=== PATIENT | female | born 1970 | race American Indian/Alaskan Native ===

== ENCOUNTER 2020-08-29 21:04 | Emergency (ER) | payer OTHER ==
[2020-08-29 21:25] VITALS: BP 212/106
[2020-08-29] MEDS ORDERED: ASPIRIN 325 MG TAB PO ONE (21:27)
[2020-08-29 22:01] LABS: Basophils % (Auto) 0.5 % (0.0-1.8); Eosinophils # (Auto) 0.2 K/mm3 (0.0-0.4); Eosinophils % (Auto) 2.2 % (0.0-4.3); Hematocrit 31.8 % (30.3-42.9); Hemoglobin 10.2 gm/dl (10.1-14.3); Lymphocytes # (Auto) 3.2 K/mm3 (1.2-5.4); Lymphocytes % (Auto) 31.9 % (13.4-35.0); Mean Corpuscular HGB Conc 32 % (30-34); Mean Corpuscular Volume 87 fl (79-97); Monocytes # (Auto) 0.7 K/mm3 (0.0-0.8); Monocytes % (Auto) 7.3 % (0.0-7.3); Platelet Count 291 K/mm3 (140-440); Red Blood Count 3.67 M/mm3 (3.65-5.03)
[2020-08-29 22:03] LABS: Red Cell Distribution Width 20.8 % (13.2-15.2)
[2020-08-29 22:21] LABS: Blood Urea Nitrogen 13 mg/dL (7-17); Calcium 8.9 mg/dL (8.4-10.2); Hemolysis Index 41
[2020-08-29 22:32] LABS: BUN/Creatinine Ratio 19
--- NOTE | 2020-08-29 22:50 | XRay Report ---
CHEST 1 VIEW 08/29/2020 9:39 PM INDICATION / CLINICAL INFORMATION: Chest pain. COMPARISON: None available. FINDINGS: SUPPORT DEVICES: None. HEART / MEDIASTINUM: No significant abnormality. LUNGS / PLEURA: No significant pulmonary or pleural abnormality. No pneumothorax. ADDITIONAL FINDINGS: No significant additional findings. IMPRESSION: 1. No acute findings. Signer Name: Brian Sanchez MD Signed: 08/29/2020 10:45 PM Workstation Name: [id number]
--- NOTE | 2020-08-30 00:44 | Cat Scan Report ---
CTA CHEST WITH IV CONTRAST INDICATION: Chest pain, shortness of breath. TECHNIQUE: Axial CT images were obtained through the chest after injection of 100 mL Omnipaque 350 IV contrast. 3 plane MIP reconstructions were produced. All CT scans at this location are performed using CT dose reduction for ALARA by means of automated exposure control. COMPARISON: None available. FINDINGS: Pulmonary Arteries: No pulmonary emboli. Lungs: No significant abnormality. Trachea and Bronchi: No significant abnormality. Heart and Pericardium: No significant abnormality. Vasculature: No significant abnormality. Lymphatics: No lymphadenopathy. Additional Findings: None. Upper Abdomen: There is a small hiatal hernia. Skeletal Structures: No aggressive appearing bone lesion. Mild generalized spondylosis in the thoraci c spine. IMPRESSION: 1. No CT evidence for pulmonary embolism. 2. No acute findings. 3. Small hiatal hernia. Signer Name: Brian Sanchez MD Signed: 08/30/2020 12:40 AM Workstation Name: [id number]
--- NOTE | 2020-08-30 01:06 | Emergency Department Report ---
ED General Adult HPI - General Chief complaint: Chest Pain Stated complaint: CHEST PAIN BLOOD PRESSURE Time Seen by Provider: 08/29/20 22:28 Source: patient Mode of arrival: Ambulatory Limitations: No Limitations - History of Present Illness Initial comments: Patient presents to the emergency department the chief complaint of chest tightness that radiates down her left arm with difficulty breathing that started at 3 PM today. Patient that she was at work and EMS was called and upon their evaluation her blood pressure is elevated with a systolic pressure of greater than 200. Upon arrival to the ED her blood pressure was 212/106. Patient states she took a dose of her nifedipine 10 minutes prior to coming to the emergency department. Patient states that pain has been continuous and located on left side of her chest. -: Sudden Location: chest Radiation: extremity Severity scale (0 -10): 2 Quality: other (Tightness) Consistency: constant Improves with: none Worsens with: none Associated Symptoms: denies other symptoms Treatments Prior to Arrival: none - Related Data Allergies Allergy/AdvReac Type Severity Reaction Status Date / Time No Known Allergies Allergy Unverified 08/29/20 21:27 ED Review of Systems ROS: Stated complaint: CHEST PAIN BLOOD PRESSURE Other details as noted in HPI Comment: All other systems reviewed and negative Constitutional: denies: chills, fever Eyes: denies: eye pain, eye discharge, vision change ENT: denies: ear pain, throat pain Respiratory: shortness of breath, SOB with exertion. denies: cough, wheezing Cardiovascular: chest pain. denies: palpitations Endocrine: no symptoms reported Gastrointestinal: denies: abdominal pain, nausea, diarrhea Genitourinary: denies: urgency, dysuria, discharge Musculoskeletal: denies: back pain, joint swelling, arthralgia Skin: denies: rash, lesions Neurological: denies: headache, weakness, paresthesias Psychiatric: denies: anxiety, depression Hematological/Lymphatic: denies: easy bleeding, easy bruising ED Past Medical Hx - Past Medical History Previous Medical History?: Yes Hx Hypertension: Yes - Surgical History Past Surgical History?: No - Social History Smoking Status: Never Smoker Substance Use Type: None ED Physical Exam - General Limitations: No Limitations General appearance: alert, in no apparent distress - Head Head exam: Present: atraumatic, normocephalic - Eye Eye exam: Present: normal appearance, PERRL, EOMI - ENT ENT exam: Present: mucous membranes moist - Neck Neck exam: Present: normal inspection - Respiratory Respiratory exam: Present: normal lung sounds bilaterally. Absent: respiratory distress - Cardiovascular Cardiovascular Exam: Present: regular rate, normal rhythm. Absent: systolic murmur, diastolic murmur, rubs, gallop - GI/Abdominal GI/Abdominal exam: Present: soft, normal bowel sounds. Absent: distended, tenderness - Extremities Exam Extremities exam: Present: normal inspection - Back Exam Back exam: Present: normal inspection - Neurological Exam Neurological exam: Present: alert, oriented X3, CN II-XII intact. Absent: motor sensory deficit - Psychiatric Psychiatric exam: Present: normal affect, normal mood - Skin Skin exam: Present: warm, dry, intact, normal color. Absent: rash ED Course Vital Signs 08/29/20 21:18 Temperature 98.6 F Pulse Rate 74 Respiratory 18 Rate Blood Pressure 212/106 O2 Sat by Pulse 98 Oximetry ED Medical Decision Making - Lab Data Result diagrams: 08/29/20 21:39 08/29/20 21:39 Lab Results 08/29/20 08/29/20 08/29/20 Range/Units 21:39 21:39 21:39 WBC 10.0 (4.5-11.0) K/mm3 RBC 3.67 (3.65-5.03) M/mm3 Hgb 10.2 (10.1-14.3) gm/dl Hct 31.8 (30.3-42.9) % MCV 87 (79-97) fl MCH 28 (28-32) pg MCHC 32 (30-34) % RDW 20.8 H (13.2-15.2) % Plt Count 291 (140-440) K/mm3 Lymph % (Auto) 31.9 (13.4-35.0) % [place] % (Auto) 7.3 (0.0-7.3) % Eos % (Auto) 2.2 (0.0-4.3) % Baso % (Auto) 0.5 (0.0-1.8) % Lymph # (Auto) 3.2 (1.2-5.4) K/mm3 [place] # (Auto) 0.7 (0.0-0.8) K/mm3 Eos # (Auto) 0.2 (0.0-0.4) K/mm3 Baso # (Auto) 0.0 (0.0-0.1) K/mm3 Seg Neutrophils % 58.1 (40.0-70.0) % Seg Neutrophils # 5.8 (1.8-7.7) K/mm3 D-Dimer (0-234) ng/mlDDU Sodium 141 (137-145) mmol/L Potassium 4.2 (3.6-5.0) mmol/L Chloride 104.5 (98-107) mmol/L Carbon Dioxide 23 (22-30) mmol/L Anion Gap 18 mmol/L BUN 13 (7-17) mg/dL Creatinine 0.7 (0.6-1.2) mg/dL Estimated GFR > 60 ml/min BUN/Creatinine Ratio 19 % Glucose 95 (65-100) mg/dL Calcium 8.9 (8.4-10.2) mg/dL Troponin T < 0.010 (0.00-0.029) ng/mL HCG, Qual Negative (Negative) 08/29/20 Range/Units 23:03 WBC (4.5-11.0) K/mm3 RBC (3.65-5.03) M/mm3 Hgb (10.1-14.3) gm/dl Hct (30.3-42.9) % MCV (79-97) fl MCH (28-32) pg MCHC (30-34) % RDW (13.2-15.2) % Plt Count (140-440) K/mm3 Lymph % (Auto) (13.4-35.0) % [place] % (Auto) (0.0-7.3) % Eos % (Auto) (0.0-4.3) % Baso % (Auto) (0.0-1.8) % Lymph # (Auto) (1.2-5.4) K/mm3 [place] # (Auto) (0.0-0.8) K/mm3 Eos # (Auto) (0.0-0.4) K/mm3 Baso # (Auto) (0.0-0.1) K/mm3 Seg Neutrophils % (40.0-70.0) % Seg Neutrophils # (1.8-7.7) K/mm3 D-Dimer 360.31 H (0-234) ng/mlDDU Sodium (137-145) mmol/L Potassium (3.6-5.0) mmol/L Chloride (98-107) mmol/L Carbon Dioxide (22-30) mmol/L Anion Gap mmol/L BUN (7-17) mg/dL Creatinine (0.6-1.2) mg/dL Estimated GFR ml/min BUN/Creatinine Ratio % Glucose (65-100) mg/dL Calcium (8.4-10.2) mg/dL Troponin T (0.00-0.029) ng/mL HCG, Qual (Negative) - EKG Data -: EKG Interpreted by Me EKG shows normal: sinus rhythm Rate: normal - Radiology Data Radiology results: report reviewed - Medical Decision Making Discussed findings of laboratory and imaging. Discussed findings of a small hiatal hernia. Critical care attestation.: If time is entered above; I have spent that time in minutes in the direct care of this critically ill patient, excluding procedure time. ED Disposition Clinical Impression: Nonspecific chest pain, Hypertension, Hiatal hernia Disposition: TO HOME OR SELFCARE Is pt being admited?: No Does the pt Need Aspirin: No Condition: Stable Instructions: Chest Pain (ED), Hypertension (ED), Hiatal Hernia (ED) Additional Instructions: return if worse Referrals: PRIMARY CARE, [Primary Care Provider] - 3-5 Days JIMMY DUNBAR MD [Staff Physician] - 3-5 Days Forms: Work/School Release Form(ED) Time of Disposition: 01:29 Heart Score - HEART Score History: Slightly suspicious EKG: Normal Age: 45-65 Risk factors: 1-2 risk factors Troponin: < normal limit HEART Score: 2
== END 2020-08-30 01:45 | disposition home or self-care (01) ==
LOC: ED 21:04
DX: K44.9 Diaphragmatic hernia without obstruction or gangrene (principal); I10 Essential (primary) hypertension; R07.89 Other chest pain
CPT/HCPCS: 36415; 71045; 71275; 80048; 84484; 84703; 85025; 85379; 93005; 99285; Q9967

== ENCOUNTER 2022-07-17 00:32 | Emergency (ER) | payer OTHER ==
[2022-07-17] MEDS ORDERED: HYDROcodone/ACETAMINOPHEN 5-325 MG TAB PO ONE (04:56)
--- NOTE | 2022-07-17 05:34 | XRay Report ---
PA chest with RIBS INDICATION: Fall FINDINGS: Lungs are clear. No pneumothorax is seen. Heart size appears normal. No displaced rib fract ure is definitely seen. Signer Name: Jani Sheppard MD Signed: 07/17/2022 5:29 AM Workstation Name: [id number]
--- NOTE | 2022-07-17 05:43 | Cat Scan Report ---
CT facial bones wo con, CT head/brain wo con INDICATION / CLINICAL INFORMATION: fall. TECHNIQUE: Axial coronal and sagittal images All CT scans at this location are performed using CT dose reduction for ALARA by means of automated exposure control. COMPARISON: None available. FINDINGS: CT head: No acute intracranial hemorrhage. Ventricles are normal in size without midline shift or mas s effect. No extra-axial fluid collection is seen. No large territorial infarct is definitely identif ied. Visualized orbits appear normal. CT maxillofacial: Slight iliac arteries appear normal. Mandible appears intact. Mucosal thickening wi thin the maxillary sinuses. Orbital plascencia appear normal and intact. Orbits appear normal. No signific ant soft tissue swelling is seen overlying the orbits. There is edema overlying the maxilla. IMPRESSION: 1. No acute intracranial findings. 2. Diffuse edema overlying the maxilla. There is irregularity within the maxilla and right incisor. T here may be a fracture through the maxilla best seen on sagittal image 27 at the root of the right in cisor. Correlation with exam. . Signer Name: Jani Sheppard MD Signed: 07/17/2022 5:39 AM Workstation Name: [id number]
--- NOTE | 2022-07-17 05:46 | Cat Scan Report ---
CT cervical spine wo con INDICATION / CLINICAL INFORMATION: fall. TECHNIQUE: Axial, coronal and sagittal images All CT scans at this location are performed using CT dose reductio n for ALARA by means of automated exposure control. COMPARISON: None available. FINDINGS: Mild curvature is seen. Endplate changes with small anterior posterior disc osteophytes throughout. N o prevertebral soft tissue swelling is seen. Odontoid and skull base appear normal. No subluxation is seen. IMPRESSION: 1. No acute fracture. Degenerative change throughout spine Signer Name: Jani Sheppard MD Signed: 07/17/2022 5:42 AM Workstation Name: [id number]
--- NOTE | 2022-07-17 06:34 | Emergency Department Report ---
ED Fall HPI - General Chief Complaint: Fall Stated Complaint: MOUTH/TEETH PAIN FROM FALL Time Seen by Provider: 07/17/22 04:58 Source: EMS Mode of arrival: Stretcher - History of Present Illness Initial Comments: Patient 51-year-old female [employer] employee with history of hypertension, urethral stone, obesity, who presents status post fall states she tripped at work striking her face on a table. There is no LOC however patient did arrive via ambulance. Patient was not C-spine immobilized or backboard. Patient complains of dental chipping and fractures. And oral pain. There is 5/10 neck pain. And right rib pain. There are no abrasions, lacerations, or bleeding. Patient is alert oriented and amatory with steady gait at this time. MD Complaint: fall - Related Data Previous Rx's Medication Instructions Recorded Last Taken Type Amoxicillin/K Clav Tab [Augmentin 1 tab PO Q12HR 7 Days #14 tab 07/17/22 Unknown Rx 875 mg] Chlorhexidine Mouthwash [Peridex] 15 ml MM BID #1 bottle 07/17/22 Unknown Rx HYDROcodone/APAP 5-325 [[place] 1 each PO Q6HR PRN #12 tablet 07/17/22 Unknown Rx 5-325 mg TAB] Allergies Allergy/AdvReac Type Severity Reaction Status Date / Time No Known Allergies Allergy Unverified 08/29/20 21:27 ED Review of Systems ROS: Stated complaint: MOUTH/TEETH PAIN FROM FALL Other details as noted in HPI Constitutional: denies: chills, fever Eyes: denies: eye pain, eye discharge, vision change ENT: denies: ear pain, throat pain Respiratory: denies: cough, shortness of breath, wheezing Cardiovascular: denies: chest pain, palpitations Endocrine: no symptoms reported Gastrointestinal: denies: abdominal pain, nausea, vomiting, diarrhea Genitourinary: denies: urgency, dysuria, discharge Musculoskeletal: other (Neck pain, rib pain, facial pain) Skin: denies: rash, lesions Neurological: headache. denies: weakness, numbness, paresthesias, confusion, vertigo Psychiatric: denies: anxiety, depression Hematological/Lymphatic: denies: easy bleeding, easy bruising ED Past Medical Hx - Past Medical History Previous Medical History?: Yes Hx Hypertension: Yes - Surgical History Past Surgical History?: Yes Additional Surgical History: urethral surgery - Social History Smoking Status: Unknown if ever smoked Substance Use Type: None - Medications Home Medications: Home Medications Medication Instructions Recorded Confirmed Last Taken Type Amoxicillin/K Clav Tab [Augmentin 1 tab PO Q12HR 7 Days #14 tab 07/17/22 Unknown Rx 875 mg] Chlorhexidine Mouthwash [Peridex] 15 ml MM BID #1 bottle 07/17/22 Unknown Rx HYDROcodone/APAP 5-325 [[place] 1 each PO Q6HR PRN #12 tablet 07/17/22 Unknown Rx 5-325 mg TAB] ED Physical Exam - General Limitations: No Limitations General appearance: alert, in no apparent distress - Head Head exam: Present: normocephalic - Expanded Head Exam Expanded Head exam: Present: abrasion (Right cheek), contusion. Absent: laceration, hematoma, racoon eyes, krishnan's sign, general tenderness, tenderness of temporal artery, CSF rhinorrhea, CSF otorrhea - Eye Eye exam: Present: PERRL, EOMI. Absent: conjunctival injection, nystagmus, periorbital swelling, periorbital tenderness Pupils: Present: normal accommodation - ENT ENT exam: Present: mucous membranes moist, TM's normal bilaterally, normal external ear exam - Expanded ENT Exam Expanded Ear exam: Present: normal external inspection Mouth exam: Present: tongue normal. Absent: trismus, muffled voice, tongue elevation, laceration Teeth exam: Present: dental caries, fractured tooth # (Multiple) Throat exam: Positive: normal inspection, other (Uvula midline no lesions no exudate no stridor airway is patent.). Negative: tonsillar erythema, tonsillomegaly, tonsillar exudate - Neck Neck exam: Present: normal inspection, tenderness (There is mild paraspinous muscle tenderness to deep palpation there is no posterior vertebral point tenderness there is no crepitus no step-off no ecchymosis range of motion is intact unrestricted to all quadrants.), full ROM. Absent: meningismus, lymphadenopathy, thyromegaly - Respiratory Respiratory exam: Present: normal lung sounds bilaterally. Absent: respiratory distress, wheezes, stridor, chest wall tenderness - Cardiovascular Cardiovascular Exam: Present: regular rate, normal rhythm, normal heart sounds. Absent: systolic murmur, diastolic murmur, rubs, gallop - GI/Abdominal GI/Abdominal exam: Present: soft, normal bowel sounds. Absent: distended, tenderness, guarding, rebound - Rectal Rectal exam: Present: deferred - Extremities Exam Extremities exam: Present: normal inspection, full ROM, normal capillary refill. Absent: tenderness - Back Exam Back exam: Present: normal inspection, full ROM. Absent: paraspinal tenderness, vertebral tenderness - Neurological Exam Neurological exam: Present: alert, oriented X3, CN II-XII intact, normal gait, reflexes normal. Absent: motor sensory deficit - Expanded Neurological Exam Expanded Patient oriented to: Present: person, place, time Speech: Present: fluid speech Cranial nerves: EOM's Intact: Normal, Gag Reflex: Normal, Tongue Deviation: Normal, Nystagmus: Normal, Facial Sensation: Normal Cerebellar function: Finger to Nose: Normal Motor strength exam: RUE: 5, LUE: 5, RLE: 5, LLE: 5 DTR: ankle (R): 1+, ankle (L): 1+ Best Eye Response ([place]): (4) open spontaneously Best Motor Response ([place]): (6) obeys commands Best Verbal Response ([place]): (5) oriented [place] Total: 15 - Psychiatric Psychiatric exam: Present: normal affect, normal mood - Skin Skin exam: Present: warm, dry, intact, normal color. Absent: rash ED Course Vital Signs 07/17/22 00:42 Temperature 98.4 F Pulse Rate 90 Respiratory 18 Rate Blood Pressure 190/100 O2 Sat by Pulse 100 Oximetry ED Medical Decision Making - Radiology Data Radiology results: report reviewed, image reviewed Fluoro Time In Minutes: PA chest with RIBS INDICATION: Fall FINDINGS: Lungs are clear. No pneumothorax is seen. Heart size appears normal. No displaced rib fracture is definitely seen. Signer Name: Jani Sheppard MD Signed: 07/17/2022 5:29 AM Workstation Name: [id number] Transcribed By: Dictated By: MARK SHEPPARD MD Electronically Authenticated By: MARK SHEPPARD MD Signed Date/Time: 07/17/22528 DD/ 8 TD/TT: CT facial bones wo con, CT head/brain wo con INDICATION / CLINICAL INFORMATION: fall. TECHNIQUE: Axial coronal and sagittal images All CT scans at this location are performed using CT dose reduction for ALARA by means of automated exposure control. COMPARISON: None available. FINDINGS: CT head: No acute intracranial hemorrhage. Ventricles are normal in size without midline shift or mass effect. No extra-axial fluid collection is seen. No large territorial infarct is definitely identified. Visualized orbits appear normal. CT maxillofacial: Slight iliac arteries appear normal. Mandible appears intact. Mucosal thickening within the maxillary sinuses. Orbital plascencia appear normal and intact. Orbits appear normal. No significant soft tissue swelling is seen overlying the orbits. There is edema overlying the maxilla. IMPRESSION: 1. No acute intracranial findings. 2. Diffuse edema overlying the maxilla. There is irregularity within the maxilla and right incisor. There may be a fracture through the maxilla best seen on sagittal image 27 at the root of the right incisor. Correlation with exam. . Signer Name: Jani Sheppard MD Signed: 07/17/2022 5:39 AM Workstation Name: [id number] Transcribed By: CW Dictated By: MARK SHEPPARD MD Electronically Authenticated By: MARK SHEPPARD MD Signed Date/Time: 07/17/22538 DD/ 3 TD/TT: CT facial bones wo con, CT head/brain wo con INDICATION / CLINICAL INFORMATION: fall. TECHNIQUE: Axial coronal and sagittal images All CT scans at this location are performed using CT dose reduction for ALARA by means of automated exposure control. COMPARISON: None available. FINDINGS: CT head: No acute intracranial hemorrhage. Ventricles are normal in size without midline shift or mass effect. No extra-axial fluid collection is seen. No large territorial infarct is definitely identified. Visualized orbits appear normal. CT maxillofacial: Slight iliac arteries appear normal. Mandible appears intact. Mucosal thickening within the maxillary sinuses. Orbital plascencia appear normal and intact. Orbits appear normal. No significant soft tissue swelling is seen overlying the orbits. There is edema overlying the maxilla. IMPRESSION: 1. No acute intracranial findings. 2. Diffuse edema overlying the maxilla. There is irregularity within the maxilla and right incisor. There may be a fracture through the maxilla best seen on sagittal image 27 at the root of the right incisor. Correlation with exam. . Signer Name: Jani Sheppard MD Signed: 07/17/2022 5:39 AM Workstation Name: [id number] Transcribed By: DIPAK Dictated By: MARK SHEPPARD MD Electronically Authenticated By: MARK SHEPPARD MD Signed Date/Time: 07/17/22538 DD/ 3 TD/TT: - Medical Decision Making CT scan noted as above concerning for maxillary fracture however oral exam noted oral airway is patent there is no stridor no swelling no exudate no lesions. There is no TMJ swelling or pain, there are multiple fractures and chipping to lower and upper incisors places swelling improved there is no ecchymosis no step-off no crepitus. Patient is tolerating p.o. intake gag is intact uvula is midline there is no tongue swelling. Patient declines maximal surgery consult tonight. Pain is resolved with medications given in ED patient is tolerating p.o. intake, patient is amatory with steady gait patient with no acute distress at this time. Plan follow-up with maxillofacial surgery, follow-up with dentist, follow-up primary care doctor in 2 to 3 days. Patient verbalized agreement and understanding of discharge plan. Critical care attestation.: If time is entered above; I have spent that time in minutes in the direct care of this critically ill patient, excluding procedure time. ED Disposition Clinical Impression: Fall Qualifiers: Encounter type: initial encounter Qualified Code(s): W19.XXXA - Unspecified fall, initial encounter Tooth fractures Qualifiers: Encounter type: initial encounter Fracture type: closed Qualified Code(s): S02.5XXA - Fracture of tooth (traumatic), initial encounter for closed fracture Disposition: 01 HOME / SELF CARE / HOMELESS Is pt being admited?: No Does the pt Need Aspirin: No Condition: Stable Instructions: Tooth Injuries, [id number] Additional Instructions: Take medications as prescribed, follow-up with maxillofacial surgery as directed, follow-up with your dentist as soon as possible, return to emergency department should symptoms worsen. , Prescriptions: Amoxicillin/K Clav Tab [Augmentin 875 mg] 1 tab PO Q12HR 7 Days #14 tab HYDROcodone/APAP 5-325 [[place] 5-325 mg TAB] 1 each PO Q6HR PRN #12 tablet PRN Reason: Pain Chlorhexidine Mouthwash [Peridex] 15 ml MM BID #1 bottle Referrals: Donaldo Tao [Other] - [facility] (call this am for appointment ) Forms: Work/School Release Form(ED) Time of Disposition: 07:08
[2022-07-17 07:37] VITALS: BP 166/98
== END 2022-07-17 07:24 | disposition home or self-care (01) ==
LOC: ED 00:32
DX: S02.5XXA Fracture of tooth (traumatic), initial encounter for closed fracture (principal); R07.81 Pleurodynia; M54.2 Cervicalgia; I10 Essential (primary) hypertension; R51.9 Headache, unspecified; Z98.890 Other specified postprocedural states; W18.39XA Other fall on same level, initial encounter; Y93.89 Activity, other specified; Y92.89 Other specified places as the place of occurrence of the external cause; Y99.8 Other external cause status
CPT/HCPCS: 70450; 70486; 72125; 99284